=== PATIENT | male | born 1970 | race Caucasian/White ===

== ENCOUNTER 2017-07-29 09:49 | Day surgery (SDC) | payer BC, OTHER ==
--- NOTE | 2017-07-28 08:42 | PDGENHP ---
History and Physical - Chief Complaint Right Hip Pain - History of Present Illness 1. Left~Femoroacetabular impingement (NUNU) Cam type, with~resultant labral tear, Cartilage damage 2. Left Meralgia paresthetica 3. Bilateral femoral retrotorsion (Clinical) 4. ~~Early Osteoarthritis HISTORY OF PRESENT ILLNESS: Sowmyais a 46 y.o.~~male~who I have had the pleasure to consult on today.~I have enjoyed meeting him. He~lives in [place]. ~Sowmyaworks as a call center professional. ~He~is ; he~has 1~child. ~Sowmyaenjoys kick boxing, hiking , and running but he is not active now. Chao's left~hip pain started in December,, with no~recalled trauma or injury, and with no~previous complaints.~Sowmyadoes not have~a known history of hip dysplasia. Presentation today is of~lateral, posterior and groin left~hip pain and generalized right hip soreness. ~The hip does~wake him~at night and does~click and catch on him. Sitting can be uncomfortable~for him. Sowmyadoes~report suffering from lower back pain episodes. Sowmyahas~participated in physical therapy and has~tried other conservative measures including hip injections and myofascial release. He has had ultrasound guided left hip steroid injection in April, and it gave him near complete relief for 4 days. He~has not~received sufficient symptomatic improvement. Sowmyahas~utilized medication for pain management, including NSAID and OTC acetaminophen. Sowmyaunderstands that he~has a hip and pelvis problem which should be researched and wishes to get a better understanding of his~hip status, followed by an establishment of a treatment strategy, hoping he~would be able to get back to his~well being active life. History: Past medical history: ~ Congenital Hypercholestrolemia, GERD Relevant familial history: None which is relevant Past surgical history: No. Surgery Anesthesia Year Outcome 1 Left shoulder surgeryx2 GA Satisfactory 2 Varicocele repair [place] 2001 Good 3 Tonsillectomy [place] 1971 Good Sowmyadenies problematic issues with general anesthesia in the past. I have reviewed, verified and agree with the past medical, surgical, family and social history. Current Medications:~has a current medication list which includes the following prescription(s): ascorbic acid (vitamin c), cholecalciferol (vitamin d3), evolocumab, and melatonin. ALLERGIES:~is allergic to adhesive tape-silicones; codeine; griseofulvin microsize; hydrocodone-acetaminophen; medical resources; oxycodone hcl; red yeast rice; sulfa (sulfonamide antibiotics); and tramadol. Objective: Physical Examination: Sowmyais 5~feet 11~inches tall and weighs~200~Lbs. Sowmyais AAO x3; he~is well -nourished, in NAD. Skin is warm and dry. ~Breathing is non-labored. ~CV with RRR by pulse. Abdomen is soft, NTND. Currently, he~walks with a normal~gait.~ Trendelenburg sign is negative~and proprioception~is normal, both~sides. He~presents~with mild~signs of joint laxity.~Beightons Score: 2 Lower spine examination is negative~for sciatic or femoral nerve irritation with negative~SLR &~femoral stretch tests. Range of motion of the spine is normal~for flexion, extension, and rotations, with no~associated pain. Strength, Sensation and pulses are normal - bilaterally~except~numbness over the left lateral proximal thigh(LFCN). Ankles and knees exams are normal~and no~mal-alignment is evident. He~has~no leg length discrepancy. Thigh circumference is symmetric~with no evidence for muscle atrophy~on both~ sides. Hip ROM (degrees): FL ER At 90~hip FL IR At 90~hip FL AB AD EX IR Neutral hip ER Neutral hip R 95 50 15 30 5 5 20 45 L 95 50 15-20 35 0 5 25 40 Specific hip and pelvis tests: Quadrant SIDDHARTHA Roll Add. Longus R Negative Negative Negative Negative L +++ +++ Negative Negative Glut. Med ITB Pos. Imp R Negative 5/5 strength Negative 5/5 strength Negative L Negative 5/5 strength Negative 5/5 strength Negative Squeeze test measured normal Bony Symphysis pubis is pain free~to touch while concentric activity of the rectus abdominis, does not~produce pain at its insertion. Ilio Psos specific tests are positive for pain during cycling for the left hip~ and remarkable for no snap. HF has no pain on ~both hips. Lateral~capsule tenderness on the left. Greater trochanteric burse is painful~on the left hip. Piriformis tests: FAIR is negative, with no~local signs of neuritis related to sciatic nerve. SIJs examination is normal~with normal~SIDDHARTHA in relation and local tenderness. Hamstrings tests are negative~functional contraction and negative~tendinopathy both hips. On a daily basis, the following percentages reflect Chao's overall total pain: Deep hip: 100% Imaging: Radiology studies which I~have personally reviewed, analyzed and measured are below: XR: AP of the hip and pelvis: Performed in a satisfactory~technique Coccyx to pubic symphysis distance 0~cm. 20 degree caudal upright. [place]~Lines are preserved. Minimal~Pathological signs are seen in the Symphysis Pubis. No~Pathological signs are seen at the Ischial~tuberosity. ~ Specific measurements show: NSA~ LCE Sourcil~Angle Sharp's angle Lat. Cam Lat. Pincer C.Over~sign Head~Coverage % ATDmm R N 27 5 39 ++ - - N N L N 25 10 43 ++ - - N N Pos. wall sign ISS NAD ~~Dysplasia Comments R Negative Negative 18.5~mm Negative L Negative Negative 14.7~mm Negative Sclerosis Sup. Lat. OA Cysts Joint Space-WBZ Joint Space-Medial R + + Negative 3.7~mm 3.9~mm L + + Negative 4.0~mm 3.6~mm X Table lateral: Anterior cam lesion is seen~on both hips. Alpha Angle: ~ Right 69~dergrees Left 65~degrees MRI shows: Mild cartilage damage with labral tear.MRI could not be uploaded into the system. Impression and plan: Chao~is a 46 y.o.~active male~suffering from symptomatic left~hip pain due to Left~Femoroacetabular impingement (NUNU) Cam type, with~resultant labral tear, Cartilage damage, Left Meralgia paresthetica, early osteoarthritis and Bilateral femoral retrotorsion (Clinical) causing significant disability to him~ and altering~his~sport and life activities. Physical examination, imaging, and his~story correspond with the diagnosis mentioned above. I explained that femoroacetabular impingement (NUNU) arises due to a bony or soft tissue conflict between the femur (ball) and acetabulum (socket) caused by an abnormality in the shape of the hip joint. Over time, repetitive impingement can result in damage to the labrum and adjacent surface cartilage within the socket, ultimately giving rise to progressive osteoarthritis of the hip. I explained that although a labral tear can be a source of pain, it is rarely the root of the problem and typically occurs secondary to an underlying abnormality in the shape and mechanics of the hip joint. ~ Meralgia paresthetica is a condition characterized by tingling, numbness and burning pain in your outer thigh. The cause of meralgia paresthetica is compression of the nerve that supplies sensation to the skin surface of your thigh. Tight clothing, obesity or weight gain, and are common causes of meralgia paresthetica. However, meralgia paresthetica can also be due to local trauma or a disease, such as diabetes. I reviewed conservative treatment options for NUNU including activity modification to avoid positions of impingement, physical therapy, non-steroidal anti-inflammatory medications, and various injections (corticosteroid and PRP) aimed at reducing inflammation in the hip joint or/and preventing dynamic impingement. PRP injections may promote healing and reduce symptoms in certain cases but it will not repair chronically damaged tissue. Although these measures may help to buy time~and reduce current level of symptoms, they are not a definitive solution to the problem given the underlying abnormality in the shape of the hip joint. Patients who have failed conservative management and continue to experience symptoms are candidates for hip arthroscopy, a minimally invasive surgery that can definitively address the underlying problem. Hip arthroscopy typically includes treating the labrum with either repair or reconstruction of the torn labrum; as well as addressing the underlying abnormalities by restoring the normal shape to the hip joint. ~If the cartilage is damaged a Microfracture~ surgical procedure may also be necessary to help stimulate the growth of fibrocartilage. ~If a patient requires a labral reconstruction or a Microfracture, the initial rehabilitation from the surgery may take longer, but the terminal operator results are typically favorable. I reviewed the technical aspects of hip arthroscopy including risks, benefits, and expected course of recovery. Chao~understands that hip arthroscopy is a minimally invasive outpatient procedure carried out through small incisions on the outer aspect of the hip joint. During surgery, the labral tear will be identified and either repaired or reconstructed~using bone anchors and suture material. Additionally, any excessive bone will be removed with a high-speed teresita to reshape the hip joint and restore normal anatomy. Risks include infection, bleeding, injury to nearby nerves or vessels, stiffness, persistent pain, instability, venous thromboembolic disease, and traction related complications including temporary foot numbness. Rarely, revision surgery may be required to address these problems. Overall recovery takes approximately 4~~ 8~months depending on the extent of damage and degree of repair. In the event that the labral tissue quality is inadequate for successful repair and healing, ChaoKerenunderstands that a labral reconstruction will be performed. This procedure entails placing a cadaver tissue graft within the hip joint and stabilizing it with bone anchors to build a new labrum. The overall recovery time for labral reconstruction is similar to that of labral repair, although the surgical procedure takes longer to perform. I want to confirm the meralgia paresthetica with a local injection and I also talked about releasing the nerve in case if the injection confirms the diagnosis. The injection will be done by our radiologist and I made the referral today. Sowmyawill review the info presented. In order to obtain more detailed information regarding the alignment, orientation, and shape of the bony hip and pelvis I will order a CT scan to be performed. The results of the CT scan, including femoral torsion and acetabular version measured values and 3D images, will aid me in deciding on the best treatment strategy and surgical pre-planning. Sowmyawill talk with our surgical services tech about possible surgery dates. Sowmyais happy with this plan. I have also supplied him~with handouts, outlining the expected surgical treatment and rehab involved. I wish~Sowmyaall the best, ~~ Jolanta Parks MD History Information - Allergies/Home Medication List Allergies/Adverse Reactions: codeine Allergy (Verified 06/22/17 11:22) griseofulvin Allergy (Verified 06/22/17 11:22) hydrocodone Allergy (Verified 06/22/17 11:22) oxycodone Allergy (Verified 06/22/17 11:22) STATINS Allergy (Uncoded 06/22/17 11:22) Other-Enter Comments tape Allergy (Uncoded 06/22/17 11:22) Other-Enter Comments Home Medications: Melatonin 10 mg Tablet 02/21/17 [Last Taken Unknown] Repatha Sureclick 02/21/17 [Last Taken Unknown] I have personally reviewed and updated: medical history - Social History Smoking Status: Never smoked Review of Systems Review of Systems: Physical Exam Physical Exam:
[2017-07-29] MEDS ORDERED: PREGABALIN 150 MG CAP PO ONE (10:09)
[2017-07-29] MEDS ORDERED: ACETAMINOPHEN 500 MG TAB PO ONE (10:09)
[2017-07-29] MEDS ORDERED: ceFAZolin 2 GM/DEXTROSE 100 ML IV ONE (10:09)
[2017-07-29] MEDS ORDERED: LR 1,000 ML IV ONE (10:10)
[2017-07-29] MEDS ORDERED: LIDOCAINE 1% 2 ML INJ ID PRN (10:10)
[2017-07-29] MEDS ORDERED: BUPIVACAINE 0.25% 30 ML SDV ONE (10:34)
[2017-07-29] MEDS ORDERED: MIDAZOLAM 2 MG/2 ML VIAL IVP ONE (11:32)
--- NOTE | 2017-07-29 11:32 | PDANEPAE ---
ANE History of Present Illness Hip labial tear ANE Past Medical History - Cardiovascular History Hx Hypertension: No Hx Arrhythmias: No Hx Chest Pain: No Hx Coronary Artery / Peripheral Vascular Disease: No Hx CHF / Valvular Disease: No Hx Palpitations: No Cardiovascular History Comment: elevated chol-on Repatha - Pulmonary History Hx COPD: No Hx Asthma/Reactive Airway Disease: No Hx Recent Upper Respiratory Infection: No Hx Oxygen in Use at Home: No Hx Sleep Apnea: No Sleep Apnea Screening Result - Last Documented: Negative - Neurologic History Hx Cerebrovascular Accident: No Hx Seizures: No Hx Dementia: No Neurologic History Comment: DDD L5/S1. SI joints "out of whack" .Spinal stenosis - Endocrine History Hx Diabetes: No - Renal History Hx Renal Disorders: No - Liver History Hx Hepatic Disorders: No - Neurological & Psychiatric Hx Hx Neurological and Psychiatric Disorders: No Neurological / Psychiatric History Comment: DDD L5/S1. SI joints "out of whack" .Spinal stenosis - Cancer History Hx Cancer: No - Congenital Disorder History Hx Congenital Disorders: No - GI History Hx Gastrointestinal Disorders: No Gastrointestinal History Comment: GERD,"overgrowth of bacteria in intestine" on probiotic - Other Health History Other Health History: wears glasses for distance for driving and [employer] - Chronic Pain History Chronic Pain: Yes (right hip and left shoulder) - Surgical History Prior Surgeries: 03/15/17 left hip scope with Irma at [facility]. tonsillectomy age 2. 2 shoulder surgeries (1 scope/1 open) [id number]. varicocele surgery ( in abd) ANE Review of Systems Review of Systems: - Exercise capacity METS (RN): 4 METS ANE Patient History - Allergies Allergies/Adverse Reactions: codeine Allergy (Verified 06/22/17 11:22) griseofulvin Allergy (Verified 06/22/17 11:22) hydrocodone Allergy (Verified 06/22/17 11:22) oxycodone Allergy (Verified 06/22/17 11:22) STATINS Allergy (Uncoded 06/22/17 11:22) Other-Enter Comments tape Allergy (Uncoded 06/22/17 11:22) Other-Enter Comments - Home Medications Home medications: home medication list seen and reviewed Home Medications: Melatonin 10 mg Tablet 02/21/17 [Last Taken 07/28/17 20:00] Repatha Sureclick 02/21/17 [Last Taken 08/18/17] - NPO status NPO Since - Liquids (Date): 07/28/17 NPO Since - Liquids (Time): 18:00 NPO Since - Solids (Date): 07/28/17 NPO Since - Solids (Time): 20:30 - Anes Hx Anes Hx: no prior problems - Smoking Hx Smoking Status: Never smoked - Family Anes Hx Family Hx Anesthesia Complications: none ANE Labs/Vital Signs - Vital Signs Blood Pressure: 116/77 Heart Rate: 88 Respiratory Rate: 16 O2 Sat (%): 96 Height: 180.34 cm Weight: 87.543 kg ANE Physical Exam - Airway Neck exam: FROM Mallampati Score: Class 1 Mouth exam: normal dental/mouth exam - Pulmonary Pulmonary: no respiratory distress - Cardiovascular Cardiovascular: regular rate and rhythym ANE Anesthesia Plan Anesthesia Plan: general endotracheal anesthesia
[2017-07-29] MEDS ORDERED: DEXAMETHASONE 4 MG/ML VIAL ONE (12:09)
[2017-07-29] MEDS ORDERED: LIDOCAINE 2% 5 ML SDV ONE (12:09)
[2017-07-29] MEDS ORDERED: ONDANSETRON 4 MG/2 ML VIAL ONE (12:09)
[2017-07-29] MEDS ORDERED: fentaNYL 100 MCG/2 ML INJ ONE ×2 (12:09→15:35)
[2017-07-29] MEDS ORDERED: ROCURONIUM 50 MG/5 ML VIAL ONE (12:09)
[2017-07-29] MEDS ORDERED: PROPOFOL 200 MG/20 ML VIAL ONE (12:09)
[2017-07-29] MEDS ORDERED: REMIFENTANIL HCL 1 MG VIAL ONE (12:19)
[2017-07-29] MEDS ORDERED: PHENYLEPHRINE HCL 100 MCG/ML SYR ONE ×2 (13:38)
[2017-07-29] MEDS ORDERED: HYDROmorphONE/DILAUDID 2 MG/ML INJ ONE (14:54)
[2017-07-29] MEDS ORDERED: ONDANSETRON 4 MG/2 ML VIAL IVP PRN (15:07)
[2017-07-29] MEDS ORDERED: NALOXONE HCL 0.4 MG/ML INJ IVP PRN (15:07)
--- NOTE | 2017-07-29 15:32 | POSTANESTH ---
Post Anesthetic Evaluation Cardiovascular Status: Normal, Stable Respiratory Status: Normal, Stable Level of Consciousness/Mental Status: Can Participate in Eval Pain Control: Adequate, Prn Tx Ordered Nausea/Vomiting Control: Adequate, Prn Tx Ordered Complications Possibly Related to Anesthesia: None Noted
[2017-07-29] MEDS: fentaNYL 100 MCG/2 ML INJ IVP PRN ×2 (15:37→15:47)
[2017-07-29] MEDS ORDERED: HYDROmorphONE/DILAUDID 1 MG/ML INJ ONE (15:56)
[2017-07-29] MEDS: HYDROmorphONE/DILAUDID 1 MG/ML INJ IVP PRN ×3 (15:57→16:30)
[2017-07-29 16:45] VITALS: TEMP 97.5
[2017-07-29 16:47] VITALS: BP 126/83
[2017-07-29 17:29] VITALS: PULSE 67; RESP 17; O2SAT 98
== END 2017-07-29 17:29 | disposition home or self-care (01) ==
LOC: FSGY 09:49
PROVIDERS: ATTEND Orthopaedic Surgery Sports Medicine
PROC: 0SBB4ZZ Excision of Left Hip Joint, Percutaneous Endoscopic Approach (ICD-10-PCS; principal; 2017-07-29 11:00)
PROC: 0SQ94ZZ Repair Right Hip Joint, Percutaneous Endoscopic Approach (ICD-10-PCS; principal; 2017-07-29 11:00)
DX: M25.851 Other specified joint disorders, right hip (principal); S73.191A Other sprain of right hip, initial encounter; M25.351 Other instability, right hip
CPT/HCPCS: 29916; 76001; C1769; C1713; J0171; J0690; J1100; J1170; J1200; J2250; J2370; J2405; J2704; J3010